=== PATIENT | female | born 1955 | race Caucasian/White ===

== ENCOUNTER 2021-02-25 08:09 | Observation (INO) | payer MEDICARE ==
[2021-01-17 09:33] LABS: BASOPHILS % 0.4 % (0.0-1.0); EOSINOPHILS # (AUTO) 0.2 (0.0-0.4); EOSINOPHILS % 2.4 % (0.0-6.0); HEMATOCRIT 42.6 % (34.2-44.1); HEMOGLOBIN 13.8 g/dL (12.0-16.0); LYMPHOCYTES # (AUTO) 2.3 (1.0-3.2); LYMPHOCYTES % 29.3 % (18.0-39.1); MEAN CORPUSCULAR HEMOGLOBIN 29.2 pg (28-32); MEAN CORPUSCULAR HGB CONC 32.4 g/dL (31-35); MEAN CORPUSCULAR VOLUME 90.3 fL (81-99); MONOCYTES # (AUTO) 0.7 (0.2-0.8); MONOCYTES % 8.5 % (4.4-11.3); NEUTROPHILS # (AUTO) 4.6 (2.1-6.9); NEUTROPHILS % 59.1 % (38.7-80.0); PLATELET COUNT 252 x10e3/uL (140-360); RED BLOOD COUNT 4.72 x10e6/uL (3.6-5.1)
[2021-02-24 09:44] LABS: BASOPHILS % 0.4 % (0.0-1.0); EOSINOPHILS # (AUTO) 0.2 (0.0-0.4); EOSINOPHILS % 2.7 % (0.0-6.0); HEMATOCRIT 42.8 % (34.2-44.1); HEMOGLOBIN 13.6 g/dL (12.0-16.0); LYMPHOCYTES % 26.2 % (18.0-39.1); MEAN CORPUSCULAR HEMOGLOBIN 29.4 pg (28-32); MEAN CORPUSCULAR HGB CONC 31.8 g/dL (31-35); MEAN CORPUSCULAR VOLUME 92.4 fL (81-99); MONOCYTES # (AUTO) 0.8 (0.2-0.8); MONOCYTES % 10.3 % (4.4-11.3); NEUTROPHILS # (AUTO) 4.5 (2.1-6.9); NEUTROPHILS % 60.1 % (38.7-80.0); PLATELET COUNT 221 x10e3/uL (140-360); RED BLOOD COUNT 4.63 x10e6/uL (3.6-5.1); RED CELL DISTRIBUTION WIDTH 13.2 % (11.7-14.4)
[~2021-02-25] VITALS: Ht 154.9 cm; Wt 95.7 kg
[~2021-02-25 08:09] MED LIST: BENADRYL25 M1 PO; CITALOPRAM HBR20 MG PO; FOLIC ACID PO; GABAPENTIN300 MG PO; IBUPROFEN400 MG PO; LEVOCETIRIZINE D5 MG PO; LIPITOR10 MG PO; LISINOPRIL10 MG PO; METHOTREXATE2.5 MG PO; ROPIVACAINE 246.25 MG, EPINEPHRINE HCL 1:1000 1ML 0.5 MG, CLONIDINE HCL 0.08 MG, KETORO... INJ ONE; SODIUM CHLORIDE 0.9% 500ML 500 ML ONE; TRANEXAMIC ACID 1,000 MG/10 ML ML ONE; ULTRAM50 MG PO; VITAMIN D2 PO; Vancomycin IV 1,000 MG ONE
[2021-02-25] MEDS ORDERED: DEXAMETHASONE SOD PHOS 10 MG/1 ML VIAL ONE (08:22)
[2021-02-25] MEDS ORDERED: CELECOXIB 200 MG CAP ONE (08:22)
[2021-02-25] MEDS ORDERED: GABAPENTIN 300 MG CAP ONE (08:22)
[2021-02-25] MEDS ORDERED: SODIUM CHLORIDE 0.9% 50ML 100 ML ONE (08:24)
[2021-02-25] MEDS ORDERED: TRANEXAMIC ACID 1,000 MG/10 ML ML ONE (08:53)
[2021-02-25] MEDS ORDERED: Vancomycin IV 1,000 MG ONE (08:53)
[2021-02-25] MEDS ORDERED: SODIUM CHLORIDE 0.9% 500ML 500 ML ONE (08:53)
[2021-02-25] MEDS ORDERED: BUPIVACAINE 7.5MG/ML /DEXTROSE 82.5MG/ML 2 ML AMP INJ ONE ×2 (10:39→10:47)
[2021-02-25] MEDS ORDERED: ONDANSETRON HCL INJ 2MG/ML 2ML 2 MG/ML VIAL IV PRN (12:45)
[2021-02-25] MEDS ORDERED: HYDROCODONE/APAP 7.5MG-325MG 1 EA TAB PO PRN (12:45)
[2021-02-25] MEDS ORDERED: DOCUSATE SODIUM 100 MG CAP PO PRN (12:45)
[2021-02-25] MEDS ORDERED: ACETAMINOPHEN 650 MG SUPP PR PRN (12:45)
[2021-02-25] MEDS ORDERED: KETOROLAC TROMETHAMINE 30 MG/ML VIAL IV PRN (12:45)
[2021-02-25] MEDS ORDERED: DIPHENHYDRAMINE HCL INJ 50 MG/ML VIAL IV PRN (12:45)
[2021-02-25] MEDS ORDERED: POVIDONE IODINE 0.05% 0.05 % ML PO ONE (13:35)
[2021-02-25] MEDS ORDERED: PROPOFOL IV EMULSION 10 MG/ML 20 ML VIAL ONE (13:35)
[2021-02-25] MEDS ORDERED: EPHEDRINE SULFATE INJ 50 MG/ML VIAL ONE (13:35)
[2021-02-25] MEDS ORDERED: LIDOCAINE HCL 2% LOCAL INJ 5 ML SDV VIAL INJ ONE (13:35)
[2021-02-25] MEDS ORDERED: ONDANSETRON HCL INJ 2MG/ML 2ML 2 MG/ML VIAL ONE (13:35)
[2021-02-25] MEDS ORDERED: PHENYLEPHRINE HCL 1% 10 MG/ML VIAL ONE (13:35)
[2021-02-25 16:30] VITALS: BP 95/60
[2021-02-25 16:55] VITALS: BP 96/61
[2021-02-25] MEDS ORDERED: ACETAMINOPHEN 1000 MG/100 ML IV PRN (17:00)
[2021-02-25 17:10] VITALS: BP 96/60
[2021-02-25] MEDS: ASPIRIN 325 MG TAB PO SCH (17:41)
[2021-02-25] MEDS: CELECOXIB 100 MG CAP PO SCH (17:41)
[2021-02-25] MEDS: SODIUM CHLORIDE 0.9% 1000ML 1,000 ML IV SCH (19:11)
[2021-02-25 20:00] VITALS: BP 96/55
[2021-02-25 20:25] VITALS: BP 96/55
[2021-02-25 20:30] VITALS: BP 96/55
[2021-02-25] MEDS: Cefazolin 1 GM in SODIUM CHLORIDE 0.9% 50ML 50 ML IV SCH (20:56)
[2021-02-25] MEDS ORDERED: ZOLPIDEM TARTRATE 5 MG TAB PO PRN (21:00)
[2021-02-26] VITALS: BP 100/76
[2021-02-26] MEDS: HYDROCODONE/APAP 5MG-325MG TAB PO PRN ×2 (01:56→12:50)
[2021-02-26] MEDS: Cefazolin 1 GM in SODIUM CHLORIDE 0.9% 50ML 50 ML IV SCH ×2 (03:06→12:15)
[2021-02-26] MEDS: SODIUM CHLORIDE 0.9% 1000ML 1,000 ML IV SCH ×2 (03:11→07:38)
[2021-02-26 03:58] VITALS: BP 100/64
[2021-02-26 04:00] VITALS: BP 94/65
[2021-02-26 04:27] VITALS: BP 100/64
[2021-02-26 06:17] LABS: HEMATOCRIT 34.1 % (34.2-44.1); HEMOGLOBIN 10.7 g/dL (12.0-16.0)
[2021-02-26 08:09] VITALS: BP 100/64
[2021-02-26] MEDS: CELECOXIB 100 MG CAP PO SCH (08:40)
[2021-02-26] MEDS: ASPIRIN 325 MG TAB PO SCH (08:40)
[2021-02-26] MEDS ORDERED: GABAPENTIN 300 MG CAP PO SCH (09:00)
[2021-02-26 11:10] VITALS: BP 102/54
[2021-02-26] MEDS ORDERED: ONDANSETRON HCL 4 MG ORAL DISINTEGRATING TAB PO PRN (13:30)
[2021-02-26] MEDS ORDERED: CELECOXIB 200 MG CAP PO SCH (17:00)
[2021-02-26] MEDS ORDERED: ATORVASTATIN 20 MG TAB PO SCH (21:00)
[2021-02-26] MEDS ORDERED: CITALOPRAM HYDROBROMIDE 20 MG TAB PO SCH (21:00)
== END 2021-02-26 15:40 | disposition home or self-care (01) ==
LOC: OR 08:09 → PACU V 13:15 → MED/SURG 16:14
PROVIDERS: ADMIT Specialist; ATTEND Specialist
DX: M17.0 Bilateral primary osteoarthritis of knee (principal); Z20.822 Contact with and (suspected) exposure to COVID-19; I10 Essential (primary) hypertension; F41.9 Anxiety disorder, unspecified; E78.5 Hyperlipidemia, unspecified; M06.9 Rheumatoid arthritis, unspecified; Z96.652 Presence of left artificial knee joint
CPT/HCPCS: 27130; 36415 ×3; 71046; 72170; 85014; 85018; 85025 ×2; 86850; 86900; 86920; 93005; 96361; 97116; 97139; 97162; 97530; C1713 ×2; C1776 ×3; G0378 ×2; J0171 ×2; J0690 ×2; J1100; J1885 ×2; J2001; J2370; J2405; J2704; J2795 ×2; J3370 ×2; J7030 ×2; J7040 ×2; U0002